=== PATIENT | female | born 1965 | race Caucasian/White ===

== ENCOUNTER 2020-03-22 06:05 | Day surgery (SDC) | payer BC ==
[~2020-03-22] VITALS: Ht 173 cm; Wt 125.0 kg
[~2020-03-22 06:05] MED LIST: ACID REDUCER 1150 MG PO; ASCO500 PO; ASPI325 PO; BUPR100ER PO; ERGO400 PO; FISH1000 PO; FLAX PO; GLUC500 PO; Hair, Skin & N1 EACH PO; METF850 PO; SUDAFED PE PRE1 EAC2 PO; Vitamin B Comple1 EA PO
--- NOTE | 2020-03-22 07:03 | NUR ---
Ambulatory in Day Surgery History, Chart, Medications and Allergies reviewed before start of procedure.Patient confirms NPO status and agrees with scheduled surgery. Patient reports completing Chlorhexadine shower X2 prior to admission to hospital.
--- NOTE | 2020-03-22 10:39 | NUR ---
Dressing to procedure site clean, dry, intact with no visible swelling, erythema or bruising noted. Small 1 cm size red drainage on right edge of upper dressing noted.
--- NOTE | 2020-03-22 11:14 | NUR ---
SMALL DRAINAGE ON DRESSING Dressing to 2 lower procedure incisions clean, dry, intact with no visible drainage, swelling, erythema or bruising noted. Upper incision dressing has dime size red drainage on right side of dressing with no visible swelling, erythema or bruising noted.
--- NOTE | 2020-03-22 11:26 | NUR ---
PT TOLERATING ORAL FLUID
--- NOTE | 2020-03-22 12:33 | NUR ---
PT DISCHARGED TO HOME Dressing to lower procedure sites clean, dry, intact with no visible drainage, swelling, erythema or bruising noted. Small amount of drainage on upper incision site, no changes from last assessment. Discharge instructions reviewed with patient. Patient verbalizes understanding. Copy given to patient to take home. Patient States Post-Procedure ride home has been arranged. Discharged via wheelchair to private car for ride home.
== END 2020-03-22 22:50 | disposition home or self-care (01) ==
LOC: ORSCMMR 06:05 → ORD 07:30 → ORSCMMR 07:30
PROVIDERS: Surgery
PROC: BF031ZZ Plain Radiography of Gallbladder and Bile Ducts using Low Osmolar Contrast (ICD-10-PCS; principal; 2020-03-22 07:30)
PROC: 0FT44ZZ Resection of Gallbladder, Percutaneous Endoscopic Approach (ICD-10-PCS; principal; 2020-03-22 07:30)
DX: K80.10 Calculus of gallbladder with chronic cholecystitis without obstruction (principal); G47.33 Obstructive sleep apnea (adult) (pediatric); Z87.891 Personal history of nicotine dependence; E66.01 Morbid (severe) obesity due to excess calories; Z68.41 Body mass index [BMI] 40.0-44.9, adult; Z79.899 Other long term (current) drug therapy; Z79.82 Long term (current) use of aspirin
CPT/HCPCS: 74300; 88304; A9270-GY; C1729; J0690; J1100; J1885; J2250; J2405; J2704; J2765; J3010; J7120

== ENCOUNTER 2020-03-23 03:21 | Emergency (ER) | payer BC ==
[~2020-03-23] VITALS: Ht 177.8 cm; Wt 122.5 kg
== END 2020-03-23 04:25 | disposition home or self-care (01) ==
LOC: ER 03:21
DX: G89.18 Other acute postprocedural pain (principal); R10.11 Right upper quadrant pain; Z79.82 Long term (current) use of aspirin; Z79.899 Other long term (current) drug therapy; Z87.891 Personal history of nicotine dependence
CPT/HCPCS: 96372; 99283-25; J3010